=== PATIENT | female | born 1975 | race Caucasian/White ===

== ENCOUNTER 2025-01-18 03:30 | Emergency (ER) | payer OTHER ==
[~2025-01-18] VITALS: Ht 165.1 cm; Wt 68.0 kg
[2025-01-18 03:40] VITALS: BP 137/76
[2025-01-18] MEDS ORDERED: METH10TA80 PO (04:06)
[2025-01-18 04:43] LABS: *BILIRUBIN,URIN NEGATIVE (NEGATIVE); *KETONES,URINE NEGATIVE (NEGATIVE); *PROTEIN,URINE NEGATIVE (NEGATIVE); *UROBILINOGEN,URINE 0.2 E.U./dl (NORMAL); LEUKOCYTE ESTERASE ,URINE NEGATIVE (NEGATIVE); NITRITE, URINE NEGATIVE (NEGATIVE); UGLUCOSE NEGATIVE (NEGATIVE)
[2025-01-18 04:45] LABS: *BLOOD, URINE TRACE (NEGATIVE); *CLARITY,URINE TURBID (CLEAR)
[2025-01-18 04:46] LABS: *COLOR,URINE LIGHT YELLOW (YELLOW); *URINE HCG, QUAL NEGATIVE (NEGATIVE)
[2025-01-18 04:54] LABS: SQUAMOUS EPITHELIAL CELL,UR FEW /HPF (NONE SEEN)
[2025-01-18 04:55] LABS: URINE AMORPHOUS PHOSPHATES MANY /HPF
[2025-01-18 06:19] LABS: PLATELET COUNT (AUTO) 200 K/uL (179-408); RED BLOOD CELL COUNT(AUTO) 4.72 MIL/uL (3.63-4.92); RED CELL DISTRIBUTION WIDTH 13.2 % (12.3-17.7); WHITE BLOOD COUNT (AUTO) 10.0 K/uL (3.8-11.8)
[2025-01-18 06:26] LABS: CREATININE 0.6 mg/dL (0.6-1.3); SODIUM SERUM 140.0 mmol/L (136-145); UREA NITROGEN, BLOOD 18.0 mg/dL (7-18)
[2025-01-18 06:32] LABS: ASPARTATE AMINOTRANSFERASE 16.0 U/L (15-37); TOTAL PROTEIN, SERUM 7.7 g/dL (6.4-8.2)
[2025-01-18] MEDS ORDERED: KETOROLAC TROMETHAMINE 30 MG INJ ONE (07:57)
[2025-01-18] MEDS ORDERED: ONDANSETRON 4 MG/2 ML VIAL ONE (07:57)
[2025-01-18] MEDS ORDERED: HYDROMORPHONE 1 MG/1 ML DISP.SYRIN ONE (07:58)
[2025-01-18] MEDS: KETOROLAC TROMETHAMINE 30 MG INJ IVP ONE (08:08)
[2025-01-18] MEDS: HYDROMORPHONE 1 MG/1 ML DISP.SYRIN IV ONE (08:08)
[2025-01-18] MEDS: ONDANSETRON 4 MG/2 ML VIAL IV ONE (08:08)
[2025-01-18] MEDS: IV NS 1000 ML 1,000 ML IV ONE (08:08)
[2025-01-18] MEDS ORDERED: CEFTRIAXONE /D5W 50ML IVPB **ER PYXIS IV ONE (09:37)
[2025-01-18] MEDS ORDERED: OXYC-128 PO (09:53)
[2025-01-18] MEDS ORDERED: NAPR500T6 PO (09:53)
[2025-01-18 10:16] VITALS: BP 118/72; O2SAT 99
== END 2025-01-18 10:16 | disposition home or self-care (01) ==
LOC: ER 03:42
DX: N13.2 Hydronephrosis with renal and ureteral calculous obstruction (principal)
CPT/HCPCS: 99285; 74176; 96365; 96375; 80053; 81001; 84703; 85025; 87086; 36415; J1885; J0696; J2405; J1171; J7040; A4606; A4663